=== PATIENT | male | born 1995 | race American Indian/Alaskan Native ===

== ENCOUNTER 2021-11-27 17:45 | Emergency (ER) | payer SELFPAY ==
[2021-11-27 18:50] LABS: Basophils # (Auto) 0.1 K/mm3 (0.0-0.1); Eosinophils # (Auto) 0.4 K/mm3 (0.0-0.4); Eosinophils % (Auto) 6.2 % (0.0-4.3); Hemoglobin 14.5 gm/dl (11.8-15.2); Mean Corpuscular HGB Conc 34 % (32-34); Mean Corpuscular Volume 77 fl (84-94); Monocytes # (Auto) 0.3 K/mm3 (0.0-0.8); Monocytes % (Auto) 4.8 % (0.0-7.3); Platelet Count 286 K/mm3 (140-440); Red Blood Count 5.61 M/mm3 (3.65-5.03); Red Cell Distribution Width 13.8 % (13.2-15.2)
[2021-11-27 18:52] LABS: Basophils % (Auto) 1.5 % (0.0-1.8); Lymphocytes # (Auto) 1.9 K/mm3 (1.2-5.4); Lymphocytes % (Auto) 25.9 % (13.4-35.0)
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
[2021-11-27 18:56] LABS: Alanine Aminotransferase 12 units/L (7-56); Albumin 4.5 g/dL (3.9-5); BUN/Creatinine Ratio 15; Blood Urea Nitrogen 12 mg/dL (9-20); Calcium 9.5 mg/dL (8.4-10.2); Hemolysis Index 10
[2021-11-27] MEDS ORDERED: ACETAMINOPHEN 500 MG TAB PO ONE (20:59)
[2021-11-27] MEDS ORDERED: IBUPROFEN 600 MG TAB PO ONE (20:59)
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
[2021-11-28 01:45] VITALS: BP 119/62
== END 2021-11-28 01:38 | disposition home or self-care (01) ==
LOC: ED 17:45
DX: S09.90XA Unspecified injury of head, initial encounter (principal); M54.2 Cervicalgia; Y04.8XXA Assault by other bodily force, initial encounter; Y93.89 Activity, other specified; Y92.89 Other specified places as the place of occurrence of the external cause; Y99.8 Other external cause status
CPT/HCPCS: 36415; 70450; 70486; 71046; 72125; 80053; 85025; 99284